=== PATIENT | female | born 1945 | race Caucasian/White ===

== ENCOUNTER 2022-11-29 12:13 | Day surgery (SDC) | payer MEDICARE ==
[2022-11-29] VITALS (17 sets, daily range): BP systolic 89–151; BP diastolic 43–63
[~2022-11-29] VITALS: Ht 152.4 cm; Wt 82.7 kg
[~2022-11-29 12:13] MED LIST: ALBU90OI INH; AMLO10 PO; DULO60 PO; FURO20 PO; LEVSOD100 PO; LOSA50 PO; METO25ER PO; OMEP20ER PO; PARO20 PO; POTA10T PO
[2022-11-30 02:20] VITALS: BP 117/51
[2022-11-30 05:40] LABS: BASOPHILS ABSOLUTE AUTO 0.02 K/mm3 (0.00-0.23); BASOPHILS PERCENT AUTO 0 % (0-2); EOSINOPHILS PERCENT AUTO 2 % (0-6); Hematocrit 32.6 % (33.0-51.0); Hemoglobin 10.4 g/dL (11.5-16.0); IMMATURE GRAN ABSOLUTE AUTO 0.01 K/mm3 (0.00-0.10); IMMATURE GRAN PERCENT AUTO 0 % (0-1); LYMPHOCYTES ABSOLUTE AUTO 1.11 K/mm3 (0.84-5.20); LYMPHOCYTES PERCENT AUTO 19 % (21-46); MONOCYTES ABSOLUTE AUTO 0.55 K/mm3 (0.16-1.47); MONOCYTES PERCENT AUTO 10 % (4-13); Mean Corpuscular HGB 29.7 pg (26.0-34.0); Mean Corpuscular HGB Conc 31.9 g/dL (31.5-36.5); Mean Corpuscular Volume 93 fL (80-100); Mean Platelet Volume 11.7 fL (9.1-12.4); NEUTROPHILS ABSOLUTE AUTO 3.97 K/mm3 (1.96-9.15); NEUTROPHILS PERCENT AUTO 69 % (41-73); Platelet Count 137 K/mm3 (150-400); RDW Standard Deviation 44.3 fL (35.1-46.3); White Blood Cell Count 5.76 K/mm3 (4.00-11.30)
[2022-11-30 05:59] LABS: Bun/Creatinine Ratio 14.2 (12.0-20.0); Calcium, Blood 7.5 mg/dL (8.5-10.1); Creatinine, Blood 0.92 mg/dL (0.40-1.00); Magnesium, Blood 1.9 mg/dL (1.6-2.4); Potassium, Blood 4.4 mmol/L (3.5-5.5)
--- NOTE | 2022-11-30 06:31 | NUR ---
POD 1 S/P R TKA. BP HYPO, IMPROVED THIS AM, PT REMAINED ASYMPTOMATIC. DRESSINGS CDI, NO SIG CHANGES NOTED TO BRUISING ON ANTERIOR THIGH. PAIN MGD PER EMAR W/REP RELIEF. PT KAILA PO, IS VOIDING URINE W/O DIFFICULTY. PT UP OOB W/FWW+SBA, KAILA WELL. PLAN TO MOBILIZE W/PT AND D/C HOME.
[2022-11-30 08:01] VITALS: BP 106/46
--- NOTE | 2022-11-30 08:55 | NUR ---
11/30/22 0855 Luisa Patel VERIFICATIONS: EDIT CHART.
[2022-11-30] MEDS ORDERED: ASPI81CH PO (10:31)
[2022-11-30] MEDS ORDERED: ACET500 PO (10:31)
[2022-11-30] MEDS ORDERED: SULTRIDS PO (10:32)
[2022-11-30] MEDS ORDERED: OXYC5 PO (10:32)
--- NOTE | 2022-11-30 11:25 | NUR ---
DISCHARGE PT HAS CLEARED THERAPY. PAIN WELL CONTROLLED. EATING, DRINKING, & VOIDING WELL. [facility] SENT w/ PT. ESCORTED OUT VIA W/C.
== END 2022-11-30 11:25 | disposition home or self-care (01) ==
LOC: ORSCMMR 12:13 → ORD 13:45 → ORSCMMR 13:45 → ORD 15:00 → SURS 16:34 → ORSCMMR 11-30 11:25
PROVIDERS: Orthopaedic Surgery
PROC: 0SRC0JA Replacement of Right Knee Joint with Synthetic Substitute, Uncemented, Open Approach (ICD-10-PCS; principal; 2022-11-29 13:45)
DX: M17.11 Unilateral primary osteoarthritis, right knee (principal); Z96.652 Presence of left artificial knee joint; Z86.73 Personal history of transient ischemic attack (TIA), and cerebral infarction without residual deficits; I10 Essential (primary) hypertension; K21.9 Gastro-esophageal reflux disease without esophagitis; J44.9 Chronic obstructive pulmonary disease, unspecified; Z79.899 Other long term (current) drug therapy; E66.9 Obesity, unspecified; Z68.35 Body mass index [BMI] 35.0-35.9, adult
CPT/HCPCS: 36415; 73560-RT; 80048; 83735; 85025; 86850; 86900; 86901; 94760; 94762; 97110; 97116; 97161; 97530; A9270; C1776; J0171; J0690; J0735; J1885; J2371; J2704; J2795; J3370; J7120

== ENCOUNTER → 2024-03-24 | Outpatient (CLI) | payer OTHER ==
[~2024-03-24] MED LIST changes: +ACET500 PO; +ASPI81CH PO; +GABAPENTIN600 MG PO; +LOVASTATIN20 MG PO; +OXYC5 PO; +SULTRIDS PO; +TRAZ150T57 PO
== END ==
LOC: LAB SHORT 12:33 → LAB 12:33
DX: N39.0 Urinary tract infection, site not specified (principal)
CPT/HCPCS: 87077; 87086; 87186

== ENCOUNTER 2024-05-29 08:43 | Day surgery (SDC) | payer OTHER ==
[~2024-05-29] VITALS: Ht 152.4 cm; Wt 80.5 kg
[2024-05-29] VITALS (11 sets, daily range): BP systolic 123–153; BP diastolic 54–89
[~2024-05-29 08:43] MED LIST changes: +CeFAZolin Sodium 2,000 MG in NS 100 ML IV SCH; +HYDROCODONE-AC1 EA19 PO; +Lactated Ringer's 1,000 ML IV SCH; +MUPIROCIN1 G1 TOP
[2024-05-29] MEDS ORDERED: HYDROmorphone HCl/Pf 1MG SYR IV PRN (09:20)
[2024-05-29] MEDS ORDERED: FentaNYL Citrate 50 MCG/ML 2 ML Injection IV PRN ×3 (09:20)
[2024-05-29] MEDS ORDERED: Ondansetron HCl 2 MG / ML 2ML Vial IV PRN (09:20)
--- NOTE | 2024-05-29 09:25 | NUR ---
INTO [facility]. PT REPORTS CHRONIC BACK PAIN. SHE STATES THAT SHE HAS NO PAIN WHILE LAYING STILL ON THE GURNEY. HISTORY AND ALLERGIES REVIEWED. LUNGS CLEAR-SATS 93% ON RA. PT DENIES SOB. NO NOTED SOB WITH AMBULATION. NPO STATUS CONFIRMED. PT SISTER KRISTEL IS HER RIDE HOME. PT NECKLACE GIVEN TO KRISTEL. PT CLOTHING IN BELONGINGS BAG BELOW THE GURNEY.PT GLASSES TAKEN TO PACU.
[2024-05-29] MEDS ORDERED: CeFAZolin Sodium 2,000 MG VIAL ONE (09:50)
[2024-05-29] MEDS ORDERED: Bupivacaine 0.5% HCl 5 MG/ML 30MLVIAL ONE ×2 (10:02→10:20)
[2024-05-29] MEDS ORDERED: FentaNYL Citrate 50 MCG/ML 2 ML Injection ONE ×2 (10:07→12:54)
[2024-05-29] MEDS ORDERED: propofoL 20 ML IV ONE (10:07)
[2024-05-29] MEDS ORDERED: Rocuronium Bromide 10 MG/ML 5ML Injection IV ONE (10:14)
[2024-05-29] MEDS ORDERED: Phenylephrine HCl 100 MCG/ML-NS 10MLSYR (1MG/10ML) ONE (10:24)
[2024-05-29] MEDS ORDERED: Dexamethasone Sod Phos 10 MG/ML 1ML VIAL ONE (10:49)
[2024-05-29] MEDS ORDERED: Ondansetron HCl 2 MG / ML 2ML Vial ONE (10:49)
[2024-05-29] MEDS ORDERED: Sugammadex Sodium 200 MG/2ML SDV (100 MG/ML) ONE (11:19)
[2024-05-29] MEDS ORDERED: OxyCODONE 5 mg/Acetamin 325 mg TABLET PO PRN (12:35)
--- NOTE | 2024-05-29 13:44 | NUR ---
Discharge instructions reviewed with patient. Patient verbalizes understanding. Copy given to patient to take home. Dressings c/d/i. Ice pack provided. Patient States Post-Procedure ride home has been arranged. Discharged via wheelchair to private car for ride home.
== END 2024-05-29 13:47 | disposition home or self-care (01) ==
LOC: ORSCMMR 08:43 → ORD 10:00 → ORSCMMR 10:00
PROVIDERS: Surgery
PROC: 0WQF4ZZ Repair Abdominal Wall, Percutaneous Endoscopic Approach (ICD-10-PCS; principal; 2024-05-29 10:00)
PROC: 0YU74JZ Supplement Right Femoral Region with Synthetic Substitute, Percutaneous Endoscopic Approach (ICD-10-PCS; principal; 2024-05-29 10:00)
PROC: 3E0T3BZ Introduction of Anesthetic Agent into Peripheral Nerves and Plexi, Percutaneous Approach (ICD-10-PCS; principal; 2024-05-29 10:00)
PROC: 0YU54JZ Supplement Right Inguinal Region with Synthetic Substitute, Percutaneous Endoscopic Approach (ICD-10-PCS; principal; 2024-05-29 10:00)
PROC: 8E0W4CZ Robotic Assisted Procedure of Trunk Region, Percutaneous Endoscopic Approach (ICD-10-PCS; principal; 2024-05-29 10:00)
DX: K40.30 Unilateral inguinal hernia, with obstruction, without gangrene, not specified as recurrent (principal); K41.30 Unilateral femoral hernia, with obstruction, without gangrene, not specified as recurrent; K45.0 Other specified abdominal hernia with obstruction, without gangrene; K66.0 Peritoneal adhesions (postprocedural) (postinfection); E66.9 Obesity, unspecified; Z68.34 Body mass index [BMI] 34.0-34.9, adult; E03.9 Hypothyroidism, unspecified; J44.9 Chronic obstructive pulmonary disease, unspecified; I12.9 Hypertensive chronic kidney disease with stage 1 through stage 4 chronic kidney disease, or unspecified chronic kidney disease; N18.9 Chronic kidney disease, unspecified; Z79.899 Other long term (current) drug therapy
CPT/HCPCS: A9270; C1781; J0690; J1100; J2371; J2405; J2704; J3010; J7120